=== PATIENT | female | born 1950 | race Caucasian/White ===

== ENCOUNTER 2018-08-18 17:28 | Emergency (ER) | payer MEDICARE ==
[~2018-08-18] VITALS: Ht 162.6 cm; Wt 103.4 kg
[~2018-08-18 17:28] MED LIST: ACTOS; CAPTOPRIL; GLYBURIDE; LANTUS; METFORMIN; PRAVASTATIN
--- NOTE | 2018-08-18 19:14 | Diagnostic Imaging Report ---
ADDENDUM #1 I have reviewed the images and agree with the findings in the preliminary report. Signed by: Dr. Kimberlee Xiong M.D. on 08/18/2018 7:45 PM ORIGINAL REPORT History: Fall with trauma to nose and frontal scalp. Comparison studies: Maxillofacial CT from today's date Technique: Axial images were obtained from the skull base to the vertex. Coronal and sagittal reconstructions obtained from the axial data. Dose modulation, iterative reconstruction, and/or weight based adjustment of the mA/kV was utilized to reduce the radiation dose to as low as reasonably achievable. Findings: Scalp/skull: Comminuted nasal bone fractures, likely acute with mild overlying soft tissue edema. Probable associated fracture of the anterior nasal septum with mild reverse S-shaped curvature of the anterior half of the nasal septum. Left-sided nasal septal spur. Extra-axial spaces: No masses. No fluid collections. Brain sulci: Appropriate for age. Ventricles: Normal in size and configuration. No hydrocephalus. Parenchyma: No abnormal densities. No masses, hemorrhage, acute or chronic cortical vascular insults. Sellar/suprasellar region: No abnormalities Craniocervical junction: Patent foramen magnum. No Chiari one malformation. IMPRESSION: 1. No acute intracranial abnormality or hemorrhage. 2. Comminuted nondisplaced nasal bone and nasal septum fractures. Signed by: Jonathon Wallace MD on 08/18/2018 7:10 PM
--- NOTE | 2018-08-18 19:17 | Diagnostic Imaging Report ---
ADDENDUM #1 I have reviewed the images and agree with the findings in the preliminary report. Signed by: Dr. Kimberlee Xiong M.D. on 08/18/2018 7:43 PM ORIGINAL REPORT History:Status post fall with trauma to nose and frontal scalp Comparison studies: Head CT and C-spine CT from today's date Technique: Axial images were obtained through the maxillofacial region. Coronal and sagittal images reconstructed from the axial data. Dose modulation, iterative reconstruction, and/or weight based adjustment of the mA/kV was utilized to reduce the radiation dose to as low as reasonably achievable. Intravenous contrast: None Findings: Soft tissues: No abnormalities. Bones: Comminuted nasal bone fractures, nondisplaced. Associated nondisplaced anterior nasal septum fracture. No other fractures are identified. Visualized intracranial contents are unremarkable. Orbits: Globes: Intact Extra or intraconal abnormalities: None. Paranasal sinuses: Clear IMPRESSION: Comminuted, nondisplaced nasal bone fractures with associated nondisplaced anterior nasal septum fracture. Signed by: Jonathon Wallace MD on 08/18/2018 7:13 PM
--- NOTE | 2018-08-18 19:25 | Diagnostic Imaging Report ---
History: Fall with neck pain. Nasal bone fractures on concurrent maxillofacial imaging. Comparison studies: Concurrent maxillofacial and head CT's. Technique: Axial images were obtained through the cervical region.. Coronal and sagittal images reconstructed from the axial data. Dose modulation, iterative reconstruction, and/or weight based adjustment of the mA/kV was utilized to reduce the radiation dose to as low as reasonably achievable. Intravenous contrast: None Findings: Fractures: None. Soft tissues: No gross abnormalities. Atlantoaxial articulation: Intact. Alignment: Normal lordosis. No scoliosis. Cervicomedullary junction: No abnormalities. The foramen magnum is patent. Vertebrae: No infection or neoplasm. Degenerative changes: Mild multilevel degenerative disease throughout the cervical spine. Large bridging anterior osteophyte at C4-5. C2-C3: Moderate left foraminal stenosis due to facet arthrosis. C3-C4: Severe left foraminal stenosis due to facet and uncovertebral arthrosis. C4-C5: Mild left foraminal stenosis due to facet and uncovertebral arthrosis. C5-C6: Moderate right foraminal stenosis due to facet and uncovertebral arthrosis. C6-C7: Bilateral moderate foraminal stenosis due to facet and uncovertebral arthrosis. IMPRESSION: 1. No acute abnormalities. 2. Cannot adequately evaluate for ligament, spinal cord and or vascular abnormalities. 3. Cervical spondylosis as detailed above. A preliminary report was given by Neuroradiology fellow Dr. Wallace at 7:25 PM on 08/18/2018. I have reviewed the images and agree with the findings in the preliminary report. Signed by: Dr. Kimberlee Xiong M.D. on 08/18/2018 7:40 PM
[2018-08-18 21:42] VITALS: BP 186/84
== END 2018-08-18 21:10 | disposition home or self-care (01) ==
LOC: FSED 17:28
DX: S01.511A Laceration without foreign body of lip, initial encounter (principal); S00.531A Contusion of lip, initial encounter; S00.33XA Contusion of nose, initial encounter; W01.0XXA Fall on same level from slipping, tripping and stumbling without subsequent striking against object, initial encounter; I10 Essential (primary) hypertension; E11.9 Type 2 diabetes mellitus without complications; G89.29 Other chronic pain
CPT/HCPCS: 70450; 70486; 72125; 99283

== ENCOUNTER 2019-10-17 07:24 | Observation (INO) | payer MEDICARE ==
[2019-10-14 13:14] LABS: BASOPHILS # (AUTO) 0.1 (0.0-0.1); BASOPHILS % 1.2 % (0.0-1.0); EOSINOPHILS # (AUTO) 0.2 (0.0-0.4); EOSINOPHILS % 2.6 % (0.0-6.0); HEMOGLOBIN 11.4 g/dL (12.0-16.0); LYMPHOCYTES # (AUTO) 1.6 (1.0-3.2); LYMPHOCYTES % 19.7 % (18.0-39.1); MEAN CORPUSCULAR HEMOGLOBIN 28.6 pg (28-32); MEAN CORPUSCULAR HGB CONC 31.7 g/dL (31-35); MEAN CORPUSCULAR VOLUME 90.2 fL (81-99); MONOCYTES # (AUTO) 0.6 (0.2-0.8); MONOCYTES % 7.5 % (4.4-11.3); NEUTROPHILS # (AUTO) 5.5 (2.1-6.9); NEUTROPHILS % 68.5 % (38.7-80.0); PLATELET COUNT 304 x10e3/uL (140-360); RED BLOOD COUNT 3.99 x10e6/uL (3.6-5.1); RED CELL DISTRIBUTION WIDTH 14.3 % (11.7-14.4)
--- NOTE | 2019-10-14 13:45 | Diagnostic Imaging Report ---
EXAMINATION: PA and lateral views of the chest. COMPARISON: None CLINICAL HISTORY: Preoperative study for knee surgery DISCUSSION: The lungs are well-inflated and without focal airspace consolidation, pleural effusion, or pneumothorax. Tortuous thoracic aorta with otherwise normal cardiomediastinal contour. No pulmonary edema. No acute osseous abnormality. Degenerative disc changes of the thoracic spine. Multiple healed right rib fracture deformities. IMPRESSION: No acute cardiopulmonary abnormalities. Signed by: Dr. Joel Khalil M.D. on 10/14/2019 1:42 PM
[~2019-10-17] VITALS: Ht 162.6 cm; Wt 104.3 kg
[~2019-10-17 07:24] MED LIST changes: +BASAGLAR K100 UNIT/1 SQ; +CELEBREX100 MG PO; +CITALOPRAM HBR20 MG PO; +JANUVIA100 MG PO; +LISINOPRIL10 MG PO; +METFORMIN HCL500 MG PO; +PRAVASTATIN SOD20 MG PO
[2019-10-17] MEDS ORDERED: ROPIVACAINE 246.25 MG, EPINEPHRINE HCL 1:1000 1ML 0.5 MG, CLONIDINE HCL 0.08 MG, KETORO... INJ ONE ×5 (07:30)
--- OUTSIDE RECORDS SUMMARY | 2019-10-17 07:31 | XMS REPORT ---
Author Author [facility] Address Unknown Phone Unavailable Care Team Providers [facility] Name Role Phone CINDI SINGH Unavailable Unavailable Claudine VELA Unavailable Unavailable Problems This patient has no known problems. Allergies, Adverse Reactions, Alerts This patient has no known allergies or adverse reactions. Medications This patient has no known medications. Results Test Description Test Time Test Comments Text Results Atomic Results Result Comments CHEST 2 VIEWS 2019-10-14 13:36:00 [place] [address] Patient Name: LOUISA BANDA MR #: [id number] : 1950 Age/Sex: 68/F Req #: [id number] Adm Physician: Ordered by: CINDI SINGH MD Report #: [id number] Location: OR Room/Bed: Procedure: [id number] DX/CHEST 2 VIEWS Exam Date: Exam Time: REPORT STATUS: Signed EXAMINATION: PA and lateral views of the chest. COMPARISON: None CLINICAL HISTORY: Preoperative study for knee surgery DISCUSSION: The lungs are well-inflated and without focal airspace consolidation, pleural effusion, or pneumothorax. Tortuous thoracic aorta with otherwise normal cardiomediastinal contour. No pulmonary edema. No acute osseous abnormality. Degenerative disc changes of the thoracic spine. Multiple healed right rib fracture deformities. IMPRESSION: No acute cardiopulmonary abnormalities. Signed by: Dr. Cindi Campbell M.D. on 10/14/2019 1:42 PM Dictated By: CINDI CAMPBELL MD 41 Transcribed By: JASIEL on 10/14/191341 COPY TO: CINDI SINGH MD CT C-SPINE W/O - [facility] 2018-08-18 19:13:00 [place] [address] Patient Name: LOUISA BANDA MR #: [id number] : 1950 Age/Sex: 67/F Req #: [id number] Adm Physician: Ordered by: VETO VELA MD Report #: [id number] Location: [facility] Room/Bed: Procedure: [id number] [facility]/CT C-SPINE W/O - [facility] Exam Date: Exam Time: REPORT STATUS: Signed History: Fall with neck pain. Nasal bone fractures on concurrent maxillofacial imaging. Comparison studies: Concurrent maxillofacial and head CT's. Technique: Axial images were obtained through the cervical region.. Coronal and sagittal images reconstructed from the axial data. Dose modulation, iterative reconstruction, and/or weight based adjustment of the mA/kV was utilized to reduce the radiation dose to as low as reasonably achievable. Intravenous contrast: None Findings: Fractures: None. Soft tissues: No gross abnormalities. Atlantoaxial articulation: Intact. Alignment: Normal lordosis. No scoliosis. Cervicomedullary junction: No abnormalities. The foramen magnum is patent. Vertebrae: No infection or neoplasm. Degenerative changes: Mild multilevel degenerative disease throughout the cervical spine. Large bridging anterior osteophyte at C4-5. C2-C3: Moderate left foraminal stenosis due to facet arthrosis. C3-C4: Severe left foraminal stenosis due to facet and uncovertebral arthrosis. C4-C5: Mild left foraminal stenosis due to facet and uncovertebral arthrosis. C5-C6: Moderate right foraminal stenosis due to facet and uncovertebral arthrosis. C6-C7: Bowen ateral moderate foraminal stenosis due to facet and uncovertebral arthrosis. IMPRESSION: 1. No acute abnormalities. 2. Cannot adequately evaluate for ligament, spinal cord and or vascular abnormalities. 3. Cervical spondylosis as detailed above. A preliminary report was given by Neuroradiology fellow Dr. Wallace at 7:25 PM on 08/18/2018. I have reviewed the images and agree with the findings in the preliminary report. Signed by: Dr. Kimberlee Xiong M.D. on 08/18/2018 7:40 PM Dictated By: KIMBERLEE XIONG MD 39 Transcribed By: JASIEL on 08/18/181939 COPY TO: VETO VELA MD CT MAX/FAC.PARANASAL SINUS WO 2018-08-18 19:11:00 [place] [address] Patient Name: LOUISA BANDA MR #: [id number] : 1950 Age/Sex: 67/F Req #: [id number] Adm Physician: Ordered by: VETO VELA MD Report #: [id number] Location: [facility] Room/Bed: Procedure: [id number] HOPD/CT MAX/FAC.PARANASAL SINUS WO Exam Date: Exam Time: REPORT STATUS: Signed ADDENDUM #1 I have reviewed the images and agree with the findings in the preliminary report. Signed by: Dr. Kimberlee Xiong M.D. on 08/18/2018 7:43 PM ORIGINAL REPORT History:Status post fall with trauma to nose and frontal scalp Comparison studies: Head CT and C-spine CT from today's date Technique: Axial images were obtained through the maxillofacial region. Coronal and sagittal images reconstructed from the axial data. Dose modulation, iterative reconstruction, and/or weight based adjustment of the mA/kV was utilized to reduce the radiation dose to as low as reasonably achievable. Intravenous contrast: None Findings: Soft tissues: No abnormalities. Bones: Comminuted nasal bone fractures, nondisplaced. Associated nondisplaced anterior nasal septum fracture. No other fractures are identified. Visualized intracranial contents are unremarkable. Orbits: Globes: Intact Extra or intraconal abnormalities: None. Paranasal sinuses: Clear IMPRESSION: Comminuted, nondisplaced nasal bone fractures with associated nondisplaced anterior nasal septum fracture. Signed by: Jonathon Wallace MD on 08/18/2018 7:13 PM Dictated By: MICHELLE WALLACE MD 42 Transcribed By: JASIEL on 08/18/181912 COPY TO: VETO VELA MD CT BRAIN -[facility] 2018-08-18 19:03:00 [place] [address] Patient Name: LOUISA BANDA MR #: [id number] : 1950 Age/Sex: 67/F Req #: [id number] Adm Physician: Ordered by: VETO VELA MD Report #: [id number] Location: [facility] Room/Bed: Procedure: [id number] HOPD/CT BRAIN WO-[facility] Exam Date: Exam Time: REPORT STATUS: Signed ADDENDUM #1 I have reviewed the images and agree with the findings in the preliminary report. Signed by: Dr. Kimberlee Xiong M.D. on 08/18/2018 7:45 PM ORIGINAL REPORT History: Fall with trauma to nose and frontal scalp. Comparison studies: Maxillofacial CT from today's date Technique: Axial images were obtained from the skull base to the vertex. Coronal and sagittal reconstructions obtained from the axial data. Dose modulation, iterative reconstruction, and/or weight based adjustment of the mA/kV was utilized to reduce the radiation dose to as low as reasonably achievable. Findings: Scalp/skull: Comminuted nasal bone fractures, likely acute with mild overlying soft tissue edema. Probable associated fracture of the anterior nasal septum with mild reverse S- shaped curvature of the anterior half of the nasal septum. Left-sided nasal septal spur. Extra-axial spaces: No masses. No fluid collections. Brain sulci: Appropriate for age. Ventricles: Normal in size and configuration. No hydrocephalus. Parenchyma: No abnormal densities. No masses, hemorrhage, acute or chronic cortical vascular insults. Sellar/suprasellar region: No abnormalities Craniocervical junction: Patent foramen magnum. No Chiari one malformation. IMPRESSION: 1. No acute intracranial abnormality or hemorrhage. 2. Comminuted nondisplaced nasal bone and nasal septum fractures. Signed by: Jonathon Wallace MD on 08/18/2018 7:10 PM Dictated By: MICHELLE WALLACE MD 44 Transcribed By: JASIEL on 08/18/181909 COPY TO: VETO VELA MD
[2019-10-17] MEDS ORDERED: CELECOXIB 200 MG CAP ONE (07:47)
[2019-10-17] MEDS ORDERED: GABAPENTIN 300 MG CAP ONE (07:48)
[2019-10-17] MEDS ORDERED: CEFAZOLIN SOD 1 GM/NS 50ML 100 ML IV ONE (07:48)
[2019-10-17] MEDS ORDERED: DEXAMETHASONE SOD PHOS 10 MG/1 ML VIAL ONE (07:48)
[2019-10-17 08:31] LABS: ANION GAP 15.2 mmol/L (8-16); CALCIUM 10.5 mg/dL (8.4-10.2); CREATININE, SERUM 1.08 mg/dL (0.57-1.11); POTASSIUM 5.2 mmol/L (3.5-5.1)
[2019-10-17] MEDS ORDERED: SODIUM CHLORIDE 0.9% 500ML 500 ML ONE (08:34)
[2019-10-17] MEDS ORDERED: TRANEXAMIC ACID 1,000 MG/10 ML ML ONE (08:34)
[2019-10-17] MEDS ORDERED: VANCOMYCIN HCL 500 MG ONE ×2 (08:34→09:31)
[2019-10-17] MEDS ORDERED: BACITRACIN 50,000 UNIT VIAL ONE (08:34)
[2019-10-17] MEDS ORDERED: DIPHENHYDRAMINE HCL INJ 50 MG/ML VIAL IM/IV PRN (10:30)
[2019-10-17] MEDS ORDERED: ZOLPIDEM TARTRATE 5 MG TAB PO PRN (10:30)
[2019-10-17] MEDS ORDERED: PROMETHAZINE HCL (IM) 25 MG/ML VIAL IM PRN (10:30)
[2019-10-17] MEDS ORDERED: KETOROLAC TROMETHAMINE 30 MG/ML VIAL IV PRN (10:30)
[2019-10-17] MEDS ORDERED: DOCUSATE SODIUM 100 MG CAP PO PRN (10:30)
[2019-10-17] MEDS ORDERED: FENTANYL CITRATE/PF 100MCG/2 ML INJ ONE ×2 (11:03→19:26)
--- NOTE | 2019-10-17 11:38 | Diagnostic Imaging Report ---
EXAMINATION: KNEE LEFT 1-2 VIEWS INDICATION: Pre-operative COMPARISON: None FINDINGS: Portable AP and lateral radiographs of the left knee demonstrate immediate postoperative findings of left total knee replacement. Alignment appears anatomic. No unexpected fracture. Postoperative subcutaneous soft tissue emphysema. Surgical skin albert in place. Small joint effusion. IMPRESSION: Anatomic alignment status post left total knee replacement. Signed by: Benji Sosa MD on 10/17/2019 11:35 AM
[2019-10-17] MEDS ORDERED: SODIUM CHLORIDE 0.9% 1000ML 1,000 ML ONE (12:00)
[2019-10-17] MEDS: ACETAMINOPHEN 1000 MG/100 ML IV SCH ×3 (12:08→22:54)
[2019-10-17] MEDS: SODIUM CHLORIDE 0.9% 1000ML 1,000 ML IV SCH ×2 (12:08→21:58)
[2019-10-17] MEDS: HYDROCODONE/APAP 7.5MG-325MG 1 EA TAB PO PRN ×3 (12:08→22:50)
[2019-10-17 12:22] VITALS: BP 140/58
[2019-10-17 12:33] VITALS: BP 140/58
[2019-10-17 12:37] VITALS: BP 140/58
[2019-10-17] MEDS ORDERED: INSULIN LISPRO 100 UNIT/1 ML 3ML VIAL SQ ONE (13:00)
[2019-10-17] MEDS ORDERED: DEXTROSE 50% SYRINGE 50 ML IV PRN (13:00)
[2019-10-17] MEDS: CEFAZOLIN SOD 1 GM/NS 50ML 50 ML IV SCH ×2 (14:45→21:57)
--- NOTE | 2019-10-17 15:12 | NUR ---
DR THOMPSON OFFICE PREARRANGED FOLLOWING DISCHARGE PLAN OF: HOME HEALTH WITH Home Care Providers [phone] CONFIRMED WITH: [facility] DME 3 IN ONE COMMODE, CPM, AND ROLLING WALKER WITH WHEELS PROVIDED BY [employer] [phone]. Per Rhianna, DME to be delivered by [facility] between 8 - 10 AM 10/18.
[2019-10-17 15:57] VITALS: BP 121/53
[2019-10-17] MEDS: CELECOXIB 200 MG CAP PO SCH (16:16)
[2019-10-17] MEDS: INSULIN LISPRO 100 UNIT/1 ML 3ML VIAL SQ SCH ×2 (16:34→20:37)
[2019-10-17] MEDS: ASPIRIN 325 MG TAB PO SCH (17:50)
[2019-10-17] MEDS ORDERED: ONDANSETRON HCL INJ 2MG/ML 2ML 2 MG/ML VIAL ONE (18:31)
[2019-10-17] MEDS ORDERED: LIDOCAINE HCL 2% LOCAL INJ 5 ML SDV VIAL INJ ONE (18:31)
[2019-10-17] MEDS ORDERED: DEXAMETHASONE SOD PHOS INJ 4 MG/ML VIAL ONE (18:31)
[2019-10-17] MEDS ORDERED: SEVOFLURANE INHAL SOLN 250 ML PEN BTL ONE (18:31)
[2019-10-17] MEDS ORDERED: PROPOFOL IV EMULSION 10 MG/ML 20 ML VIAL ONE (18:31)
--- NOTE | 2019-10-17 19:00 | NUR ---
RECEIVED PATIENT IN BEDSIDE REPORT. PATIENT CURRENTLY ON CPM. NO PAIN REPORTED. NO S&S OF DISTRESS NOTED. BED LOCKED IN LOWEST POSITION, SIDE RAILS UPX2, CALL LIGHT IN REACH. FAMILY MEMBER AT BEDSIDE.
[2019-10-17] MEDS ORDERED: ROPIVACAINE 0.5% 5 MG/ML 30 ML SDV ONE (19:01)
--- NOTE | 2019-10-17 19:12 | Operative Report ---
DATE OF PROCEDURE: 10/17/2019 SURGEON: Joel Graves MD EXPOSURE MACHINE OPERATOR: Dusty Lopez, certified PA. PREOPERATIVE DIAGNOSIS: Osteoarthritis, left knee. POSTOPERATIVE DIAGNOSIS: Osteoarthritis, left knee. PROCEDURE: Left total knee arthroplasty, * added complexity secondary to BMI 40. INDICATIONS: The patient is a 68-year-old lady, who has severe end-stage arthritis of her left knee. She has failed conservative management and would like to proceed with a left knee replacement. The added challenges both for surgeon and her recovery due to her BMI of 40 have been explained. Much of her weight was distributed around her lower extremities. The added risks for perioperative complications were explained. She states she understands and feels that she has made a reasonable effort to lose weight. She would like to proceed with the surgery. PROCEDURE IN DETAIL: The patient was brought to the operating room and placed under general anesthetic. She received prophylactic antibiotics, a regional block and tranexamic acid in the holding area. Her left lower extremity was prepped and draped in a sterile manner. A preoperative time-out was performed. The extremity was exsanguinated and a proximal tourniquet was inflated to 350 mmHg. An anterior approach with a medial parapatellar arthrotomy was performed. A slightly more extensile incision was necessary. Abundant subcutaneous adipose tissue was encountered. Care was taken to limit the development of space. Soft tissue releases were performed to bring the knee up into flexion with the patella everted. Exposure was challenging with this deep and altered surgical field. There was no anterior cruciate ligament, but the posterior cruciate ligament was remained present, this was sacrificed. A Magana and Nephew posterior stabilized Legion Knee System were used throughout the case. An extramedullary tibial cutting guide was placed onto the proximal tibia. There was very limited capacity to get the cutting jig, securely fixed with pins. I elected to use the cutting guide in place and cut the medial aspect of the tibia. The tibial cutting guide was then removed. Some of the lateral plateau had also been cut with a tibial guide in place. I then proceeded to free hand. The remainder of the cut while holding the blade, flush to the existing cut. Ultimately, the proximal tibia was resected and the cut was smoothed and without any step-offs. The tibial base plate was a size #4. The central fin punch was impacted and attention was directed towards the distal femur. An intramedullary cutting guide was used to resect the distal femur, this was cut in 6 degrees of valgus and rotation referencing off a combination of landmarks including Whitesides line, the epicondylar axis, and the posterior condyles. The femoral component was a size #5. The anterior, posterior, and notch cuts were made. A trial reduction was performed. I felt that an 11 mm posterior stabilized tibial insert provided appropriate soft tissue balancing in full extension and 90 degrees of flexion. The patella was resurfaced with a 29 mm x 9 mm patellar button. The thickness was checked before and after, and was right at 23 mm each time. Patellar tracking was noted to be concentric. The trial implants were then removed. The wound was then thoroughly irrigated with a shower tip pulsatile lavage. A 100 mL premixed pericapsular JOSÉ MIGUEL injection was placed into the surrounding soft tissue. The components were cemented into place using a single mix of the Biomet high viscosity cement preloaded with antibiotics. Care was taken to remove extravasated cement. The wound was further irrigated while the cement cured. Additional irrigation was performed with a spray mixture of diluted polymyxin and vancomycin spray. The arthrotomy was then closed with interrupted #1 Ethibond. The deep wound was closed after a sprinkling 500 mg of vancomycin powder into the joint. The knee was put through flexion and extension to ensure a secure closure. The skin was carefully closed with subcuticular Vicryl and albert. Her skin was thin. A sterile Aquacel bandage and an Adair wrap were applied. The patient was extubated and transported to the recovery room in stable condition. Blood loss was minimal. All needle and sponge counts were correct. Joel Graves MD DR/ASHLEE /[id number]
[2019-10-17] MEDS ORDERED: MIDAZOLAM HCL 2 MG/2 ML VIAL ONE (19:26)
[2019-10-17 19:45] VITALS: BP 109/55
[2019-10-17 20:00] VITALS: BP 109/55
--- NOTE | 2019-10-17 20:10 | NUR ---
ASSISTED PATIENT TO TOILET. PATIENT WAS TURNING TO SIT, L KNEE BUCKLED. SAFELY SAT ON TOILET AND ASSISTED TO BED AFTER. PROVIDED PATIENT WITH BEDSIDE COMMODE TO PREVENT FURTHER BUCKLING. PATIENT VERBALIZED UNDERSTANDING TO CALL FOR ASSISTANCE IF SHE GETS OUT OF BED. FOOT PUMPS ACTIVE. WILL CONTINUE TO MONITOR.
[2019-10-18] VITALS: BP 119/57
[2019-10-18] MEDS: HYDROCODONE/APAP 5MG-325MG TAB PO PRN ×2 (03:14→12:02)
[2019-10-18 04:00] VITALS: BP 102/53
[2019-10-18] MEDS: ACETAMINOPHEN 1000 MG/100 ML IV SCH (04:08)
[2019-10-18] MEDS: ONDANSETRON HCL INJ 2MG/ML 2ML 2 MG/ML VIAL IV PRN ×2 (05:45→12:02)
[2019-10-18] MEDS: CEFAZOLIN SOD 1 GM/NS 50ML 50 ML IV SCH (05:45)
[2019-10-18 06:17] LABS: HEMATOCRIT 28.2 % (34.2-44.1); HEMOGLOBIN 8.8 g/dL (12.0-16.0)
--- NOTE | 2019-10-18 06:20 | NUR ---
REMOVED PATIENT'S PAMELA WRAP AT THIS TIME. DRESSING C/D/I WITH MINIMAL DRAINAGE, BRUISES NOTED TO LEG SURROUNDING AQUACELL DRESSING. DEB HOSE APPLIED. CPM STARTED AT THIS TIME, 55 DEGREES.
--- NOTE | 2019-10-18 07:00 | NUR ---
RECEIVED PATIENT AWAKE RESTING IN BED NO S/S OF DISTRESS. CPM IN PLACE. BED LOW, WHEELS LOCKED, SIDE RAILS X2. CALL LIGHT IN REACH WILL CONTINUE TO MONITOR PATIENT.
[2019-10-18] MEDS: SODIUM CHLORIDE 0.9% 1000ML 1,000 ML IV SCH (08:00)
[2019-10-18 08:08] VITALS: BP 119/70
[2019-10-18] MEDS: ASPIRIN 325 MG TAB PO SCH (08:17)
[2019-10-18] MEDS: CELECOXIB 200 MG CAP PO SCH (08:17)
[2019-10-18] MEDS: INSULIN LISPRO 100 UNIT/1 ML 3ML VIAL SQ SCH ×2 (08:18→11:30)
--- NOTE | 2019-10-18 08:20 | NUR ---
REMOVED CPM AT THIS TIME. PATIENT TOLERATED WELL, NO PAIN. CALL LIGHT IN REACH WILL CONTINUE TO MONITOR PATIENT.
[2019-10-18 08:51] VITALS: BP 119/70
--- NOTE | 2019-10-18 10:45 | NUR ---
PATIENT A/O X3, EVEN RESPIRATIONS ON 2LNC. LUNG SOUNDS CLEAR TO AUSCULTATION. LEFT KNEE DRESSING CLEAN, DRY, AND INTACT. DEB HOSE BILATERALLY. FOOT PUMPS IN PLACE. NO PAIN AT THIS TIME. CALL LIGHT IN REACH WILL CONTINUE TO MONITOR PATIENT.
--- NOTE | 2019-10-18 11:02 | Consultation ---
DATE OF CONSULTATION: REASON FOR CONSULTATION: Postop medical management. HISTORY OF PRESENT ILLNESS: The patient is a 68-year-old lady, status post left knee arthroplasty for end-stage osteoarthritis. She is doing well postoperatively and denies any fever, chills, vomiting, headache, shortness of breath, dizziness. REVIEW OF SYSTEMS: She does state she has some mild nausea, but is getting better and has had no vomiting. PAST MEDICAL HISTORY: Significant for anxiety, diabetes, high blood pressure, hyperlipidemia. MEDICATIONS: See MAR. ALLERGIES: NONE. SOCIAL HISTORY: Nonsmoker. Nondrinker. with 2 kids and retired. FAMILY HISTORY: Dementia. PHYSICAL EXAMINATION: VITAL SIGNS: Temperature 97.9, pulse 84, blood pressure 119/57, sats 93%. GENERAL: She is in no apparent distress, lying in bed. NECK: Supple. CARDIOVASCULAR: Regular rate and rhythm. LUNGS: Clear to auscultation bilaterally. ABDOMEN: Good bowel sounds. Soft, nontender. EXTREMITIES: No clubbing, cyanosis. NEUROLOGIC: Nonfocal. ASSESSMENT AND PLAN: 1. Left knee pain. Continue with postoperative care and physical therapy. 2. Anemia. Check a CBC. 3. Diabetes. Continue to monitor sugar. 4. Hypertension. Continue with her blood pressure medicine, which she is taking p.o. intake better. 5. Hyperlipidemia. Continue with pravastatin, which she is taking p.o. Please see hospital chart for full details. MD MARCELL Morejon/ASHLEE /[id number]
[2019-10-18] MEDS ORDERED: ACETAMINOPHEN 650 MG SUPP PR PRN (12:00)
[2019-10-18] MEDS ORDERED: ACETAMINOPHEN 1000 MG/100 ML IV PRN (12:00)
[2019-10-18 12:15] VITALS: BP 145/67
--- NOTE | 2019-10-18 14:22 | NUR ---
REMOVED PATIENTS IV. CATHETER TIP INTACT AND PRESSURE DRESSING APPLIED.
--- NOTE | 2019-10-18 14:26 | NUR ---
PATIENT DISCHARGED FROM FACILITY. PATIENT GATHERED ALL PERSONAL BELONGINGS, DISCHARGE INSTRUCTIONS, AND FOLLOW UP WITH INFORMATION. LEFT UNIT IN WHEELCHAIR AND WENT HOME VIA PRIVATE AUTO. NO SIGNS OF DISTRESS WHEN LEAVING FACILITY.
== END 2019-10-18 14:27 | disposition home health service (06) ==
LOC: OR 07:24 → PACU V 10:21 → MED/SURG 11:27
PROVIDERS: ADMIT Specialist; ATTEND Specialist
DX: M17.12 Unilateral primary osteoarthritis, left knee (principal); Z01.812 Encounter for preprocedural laboratory examination; Z01.811 Encounter for preprocedural respiratory examination; E66.01 Morbid (severe) obesity due to excess calories; Z68.39 Body mass index [BMI] 39.0-39.9, adult; F41.9 Anxiety disorder, unspecified; E11.9 Type 2 diabetes mellitus without complications; I10 Essential (primary) hypertension; E78.00 Pure hypercholesterolemia, unspecified; Z87.442 Personal history of urinary calculi; D64.9 Anemia, unspecified; Z79.4 Long term (current) use of insulin
CPT/HCPCS: 27447; 36415 ×2; 71046; 73560; 80048; 82948 ×2; 85014; 85018; 85025; 86850; 86900; 86920; 97116 ×2; 97139 ×2; 97161; 97530 ×2; C1713 ×3; G0378 ×2; J0131; J0171; J0690 ×2; J1100 ×2; J1885; J2001; J2250; J2405 ×2; J2704; J2795; J3010; J3370; J7030; J7040